=== PATIENT | male | born 1990 | race Caucasian/White ===

== ENCOUNTER 2019-07-03 15:27 | Emergency (ER) | payer BC, OTHER ==
[~2019-07-03] VITALS: Ht 177.8 cm; Wt 78.9 kg
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
--- NOTE | 2019-07-03 15:41 | NUR ---
SEEN AND EXAMINED BY
--- NOTE | 2019-07-03 15:55 | NUR ---
IV LINE ESTABLISHED, BLOOD DRAWNED AND SENT TO LAB.
[2019-07-03 15:58] LABS: BASOPHILS # (AUTO) 0.1 /CMM (0.0-0.2); BASOPHILS % (AUTO) 0.9 % (0.0-2.0); EOSINOPHILS % (AUTO) 1.1 % (0.0-6.0); HEMATOCRIT 45 % (39-51); HEMOGLOBIN 15.9 g/dL (13.5-17.5); LYMPHOCYTES # (AUTO) 1.3 /CMM (0.8-4.8); LYMPHOCYTES % (AUTO) 17.9 % (20.0-44.0); MEAN CORPUSCULAR HGB CONC 35 g/dl (31.0-36.0); MEAN CORPUSCULAR VOLUME 96 fL (80-96); MONOCYTES # (AUTO) 0.5 /CMM (0.1-1.30); MONOCYTES % (AUTO) 7.7 % (2.0-12.0); NEUTROPHILS # (AUTO) 5.1 /CMM (1.8-8.9); NEUTROPHILS % (AUTO) 72.4 % (43.0-81.0); PLATELET COUNT (AUTO) 300 /CMM (150-450); RED BLOOD CELL COUNT(AUTO) 4.66 MIL/uL (4.5-6.0)
[2019-07-03 16:00] LABS: APPEARANCE,URINE Clear (CLEAR); BILIRUBIN,URINE SMALL (NEGATIVE); BLOOD, URINE Negative Ery/uL (NEGATIVE); COLOR,URINE Yellow (YELLOW); KETONES,URINE Negative (NEGATIVE); LEUKOCYTE ESTERASE ,URINE Negative (NEGATIVE); NITRITE, URINE Negative (NEGATIVE); PH,URINE 5.5 (5.0-8.0); PROTEIN,URINE Trace mg/dl (NEGATIVE); UGLUCOSE Negative (NEGATIVE); UROBILINOGEN,URINE 0.2 EU/dL (0.2)
--- NOTE | 2019-07-03 16:00 | NUR ---
URINE SPECIMEN COLLECTED AND SENT TO [facility]
[2019-07-03 16:04] LABS: CALCIUM, SERUM 9.6 mg/dL (8.5-10.1); CARBON DIOXIDE 28 mmol/L (21-32); CHLORIDE 106 mmol/L (98-107); CREATININE 1.2 mg/dL (0.6-1.3); GLUCOSE 109 mg/dL (74-106); SODIUM SERUM 146 mmol/L (136-145); UREA NITROGEN, BLOOD 13 mg/dL (7-18)
[2019-07-03 16:10] LABS: ALANINE AMINOTRANSFERASE 28 U/L (12-78); ALBUMIN 4.2 g/dL (3.4-5.0); ALCOHOL, BLOOD < 3 mg/dL (0-0); ALKALINE PHOSPHATASE 63 U/L (46-116); ASPARTATE AMINOTRANSFERASE 29 U/L (15-37); BILIRUBIN,DIRECT 0.3 mg/dL (0.0-0.2); BILIRUBIN,TOTAL 1.3 mg/dL (0.2-1.0); TOTAL PROTEIN, SERUM 7.7 g/dL (6.4-8.2)
[2019-07-03] MEDS ORDERED: IOHEXOL-300 100 ML VIAL IV ONE (16:13)
[2019-07-03 16:15] LABS: ACETAMINOPHEN < 2 ug/ml (10-30); SALICYLATE < 0.2 mg/dL (2.8-20.0)
[2019-07-03 16:22] LABS: BACTERIA,URINE Rare /HPF (None Seen); RBC,URINE NONE SEEN /HPF (0-2); SQUAMOUS EPITHELIAL CELL,UR Few /HPF (None Seen); WBC,URINE NONE SEEN /HPF (0-3)
--- NOTE | 2019-07-03 16:40 | NUR ---
PT IS WHEELED TO CT SCAN VIA [facility].
--- NOTE | 2019-07-03 17:49 | NUR ---
CALLED [facility], ETA IS AN HOUR.
--- NOTE | 2019-07-03 18:41 | NUR ---
BRIANNA RN AT BEDSIDE FOR PSYCH EVAL.
--- NOTE | 2019-07-03 20:41 | NUR ---
ACCEPTED TO [place]. NUMBER FOR REPORT . EXT 203 UNIT 1. ACCEPT[address] MD DR BERG
--- NOTE | 2019-07-03 20:53 | NUR ---
REPORT GIVEN TO TAE AMARO.
--- NOTE | 2019-07-03 20:57 | NUR ---
[facility] SPOKE TO BERNARDINO VALLADARES 22:00
--- NOTE | 2019-07-03 21:44 | NUR ---
[facility] UNIT 40 AT BEDSIDE FOR PT TRANSPORT TO [facility]. REPORT GIVEN. PT STABLE FOR TRANSPORT. NAD NOTED PRIOR TO DC
[2019-07-03 21:46] VITALS: BP 154/91
== END 2019-07-03 21:51 ==
LOC: ER 15:29
DX: F28 Other psychotic disorder not due to a substance or known physiological condition (principal); Z88.0 Allergy status to penicillin; Z60.2 Problems related to living alone
CPT/HCPCS: 36415; 70470; 80048; 80076; 80305; 80307; 80329; 81001; 85025; 99285; G0480; Q9967; 81000-TC